=== PATIENT | female | born 1990 | race Caucasian/White ===

== ENCOUNTER 2021-11-23 10:31 | Outpatient (REF) | payer BC, SELFPAY ==
--- NOTE | ~2021-11-23 | XR_ITS ---
EXAMINATION: XR ANKLE, LEFT CLINICAL INFORMATION: Ankle injury COMPARISON: None TECHNIQUE: AP, lateral, and mortise views of the left ankle. FINDINGS: There is no evidence of acute fracture or dislocation of the left ankle. Left ankle mortise appears intact without widening of the medial joint space. No significant soft tissue swelling is appreciated. XR/XR ankle LT min 3V IMPRESSION: No acute fracture or dislocation of the left ankle.
== END 2021-11-23 10:32 | disposition home or self-care (01) ==
LOC: HO.HMGCX 10:31
PROVIDERS: PCP Internal Medicine; Visit Provider Physician Assistant
DX: S99.912A Unspecified injury of left ankle, initial encounter (principal)
CPT/HCPCS: 73610

== ENCOUNTER 2024-07-11 08:15 | Outpatient (REF) | payer BC, SELFPAY ==
[2024-07-11 10:41] LABS: Influenza A PCR NEGATIVE (Negative); Influenza B PCR NEGATIVE (Negative); Resp Syncy Virus RNA Qual PCR NEGATIVE (Negative); SARS COV2 PCR INHOUSE NEGATIVE (Negative)
== END 2024-07-11 08:16 | disposition home or self-care (01) ==
LOC: HO.LAB 08:15
PROVIDERS: PCP Nurse Practitioner Family; Visit Provider Nurse Practitioner Family
DX: J06.9 Acute upper respiratory infection, unspecified (principal)
CPT/HCPCS: 0241U; 87880

== ENCOUNTER 2024-07-11 08:15 | Outpatient (AMB) | payer BC, SELFPAY ==
--- NOTE | 2024-07-11 08:24 | AM.OFFWIN_ITS ---
Intake Vital Signs 07/11/24 08:25 Height 5 ft 7 in Weight 239 lb BMI 37.4 BP 110/80 Blood Pressure Location Rt brachial Position Sitting Pulse 80 Pulse Source Pulse Oximeter Temp 98.2 F Temp Source Oral Pulse Oximetry (%) 98 Oxygen Delivery Method Room Air Intake Visit Reasons: EP-strep test Intake Note: Patient here for cough, runny nose, fatigue and sore throat Patient Tobacco Use Status: Never used Tobacco Allergies No Known Allergies Allergy (Verified 07/11/24 08:26) Do you need a note to return to daycare/school/sports/work: No HPI HPI Comments History of Present Illness Details 33 y/o female patient who presents to [facility] with c/o Sore-throat for 2 days now. She has 2 young children at home with Strep and RSV. Denies fevers, chills, nausea or vomiting. PFSH Social History Patient Tobacco Use Status: Never used Tobacco Review of Systems Const All systems reviewed & are unremarkable except as noted in HPI and below Physical Exam Vital Signs: Last Vital Signs Temp 98.2 F 07/11/24 08:25 Pulse 80 07/11/24 08:25 BP 110/80 07/11/24 08:25 Pulse Ox 98 07/11/24 08:25 Oxygen Delivery Method Room Air 07/11/24 08:25 BMI result Body Mass Index 37.4 Const General: cooperative and no acute distress Nutritional Appearance: overweight Orientation/consciousness: patient oriented x3 HEENT Head: Yes normocephalic Ears: external ears normal and TM abnormal erythematous and with fluid behind the TM General nose exam: Abnormal mucous membranes and turbinates present boggy and erythematous Face and sinus: Yes sinuses nontender Mouth: moist mucous membranes Throat: Yes postnasal drainage Resp Effort & Inspection: normal respiratory effort, able to speak in complete sent[place] sherie and no cough Auscultation: clear to auscultation bilaterally, no crackles, no rales, no rhonchi and no wheezes Cardio Heart sounds: S1 normal heart sound present and S2 normal heart sound present Neuro General: patient oriented x3, gait normal and moves all extremities Psych Speech and movement: Normal speech and movement present Results AMB Rapid Strep AMB Rapid Strep Negative Last Edit by QUINN Perez on 07/11/24 09:12 Assessment & Plan Assessment & Plan (1) Acute respiratory disease: Code(s): J06.9 - Acute upper respiratory infection, unspecified Plan: Rapid Strep negative Ordered SARs OTC cold/cough remedies Rest and hydrate well. Orders: Orders AMB Rapid Strep Screen Today Z13.9 - Encounter for screening, unspecified SARS-CoV2/FLU/RSV Today J06.9 - Acute upper respiratory infection, unspecified Coding Level of Care Code Est Pt Level 3 (05805) Diagnoses Acute respiratory disease J06.9 Time Spent (min) 15
[2024-07-11 08:25] VITALS: BP 110/80; PULSE 80; TEMP 36.8; O2SAT 98; BMI 37.4
== END 2024-07-11 09:25 | disposition home or self-care (01) ==
PROVIDERS: PCP Nurse Practitioner Family; Visit Provider Nurse Practitioner Family
DX: J06.9 Acute upper respiratory infection, unspecified (principal); Z13.9 Encounter for screening, unspecified

== ENCOUNTER 2025-04-29 10:05 | Outpatient (AMB) | payer BC, SELFPAY ==
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
[2025-04-29 10:12] VITALS: BP 120/82; PULSE 63; RESP 16; TEMP 36.8; O2SAT 98; BMI 34.0
== END 2025-04-29 12:52 | disposition home or self-care (01) ==
LOC: HO.HMCC 10:06
PROVIDERS: Visit Provider Internal Medicine
DX: Z00.01 Encounter for general adult medical examination with abnormal findings (principal); E66.811 Obesity, class 1; Z68.34 Body mass index [BMI] 34.0-34.9, adult; F41.1 Generalized anxiety disorder; L70.0 Acne vulgaris

== ENCOUNTER → 2025-04-29 10:05 | Outpatient (BNVA) | payer BC, SELFPAY | PROVIDERS: Visit Provider Internal Medicine | DX: Z00.01 Encounter for general adult medical examination with abnormal findings (principal); E66.811 Obesity, class 1; F41.1 Generalized anxiety disorder; L70.0 Acne vulgaris; Z68.34 Body mass index [BMI] 34.0-34.9, adult | CPT/HCPCS: 96127 ==

== ENCOUNTER 2025-08-20 06:44 | Outpatient (REF) | payer BC, SELFPAY ==
[2025-08-20 10:25] LABS: MANUAL DIFF FLAG NO
[2025-08-20 10:40] LABS: Hematocrit 42.4 % (37.0-47.0); Hemoglobin 13.7 g/dl (12.0-16.0); Imm Gran Abs Auto 0.02 X10*3/uL (0.00-0.03); Imm Gran Pct Auto 0.3 % (0.0-0.4); Lymphocytes Absolute Auto 2.5 X10*3/uL (1.2-4.9); Mean Corpuscular HGB Conc 32.3 g/dl (31.0-35.0); Mean Corpuscular Hemoglobin 29.0 pg (27.0-33.0); Mean Corpuscular Volume 89.8 fL (80.0-98.0); NRBC Abs Auto 0.000 X10*3/uL (0.0-0.012); NRBC Pct Auto 0.0 /100WBC (0.0-0.2); Platelet Count 240 X10*3/uL (160-400); Red Blood Count 4.72 X10*6/uL (4.20-5.50); White Blood Count 7.6 X10*3/uL (4.8-10.8)
[2025-08-20 11:23] LABS: Alanine Aminotransferase 26 U/L (0-31); Anion Gap 10 (12-20); Aspartate Amino Transferase 26 U/L (5-31); Blood Urea Nitrogen 12 mg/dL (9-16); Calcium 9.5 mg/dL (8.4-10.2); Carbon Dioxide 26 mmol/L (22-29); Chloride 109 mmol/L (96-108); Cholesterol 186 mg/dL (<200); Estimated Glomerular Filt Rate > 60; HDL Cholesterol 54 mg/dL (>40); Potassium 4.4 mmol/L (3.3-5.1); Sodium 141 mmol/L (135-145); Triglycerides 142 mg/dL (<150)
== END 2025-08-20 06:45 | disposition home or self-care (01) ==
LOC: HO.HMGCLDS 06:44
PROVIDERS: PCP Internal Medicine; Visit Provider Internal Medicine
DX: E66.811 Obesity, class 1 (principal); Z13.220 Encounter for screening for lipoid disorders; Z13.1 Encounter for screening for diabetes mellitus; Z13.21 Encounter for screening for nutritional disorder; Z13.29 Encounter for screening for other suspected endocrine disorder; Z97.5 Presence of (intrauterine) contraceptive device
CPT/HCPCS: 36415; 80048; 80061; 82306; 84443; 84450; 84460; 85025

== ENCOUNTER 2025-09-02 07:54 | Outpatient (AMB) | payer BC, SELFPAY ==
--- NOTE | 2025-09-02 08:21 | MHC.PC.OV ---
Vital Signs 09/02/25 08:22 Height 5 ft 7 in Weight 237 lb BMI 37.1 BP 112/72 Blood Pressure Location Rt brachial Position Sitting Respiration 16 Pulse 80 Pulse Source Pulse Oximeter Temp 98.6 F Temp Source Oral Pulse Oximetry (%) 98 Oxygen Delivery Method Room Air Intake Visit Reasons: 2 month follow up Intake Note: Pt is here today for her 2 months f/u Allergies No Known Allergies Allergy (Verified 09/02/25 08:28) Medication List - Last Reconciled 09/02/25 by Ivis Flanagan MD etonogestrel (Nexplanon) subdermal sertraline 75 mg (1.5 x 50 mg) PO DAILY Tobacco use date assessed: 09/02/25 Dental Screening Dental Screen Date: 09/02/25 Did you have a dental visit in the last 12 months?: Yes Did you have a dental problem in the last 6 months where you did not have access to dental care?: No Was dental information given to patient?: Patient has dentist HPI 2 month follow up HPI Details 34-year-old lady here today for follow-up on her generalized anxiety disorder. She is currently on sertraline 75 mg taken once a day which she states has been helping control her anxiety attacks. She also sees a therapist via zoom from [facility]. Recent fasting labs showed normal lipids, electrolytes renal function and liver enzymes but fasting glucose is mildly elevated at 107 mg/dL. She has history of gestational diabetes and family history for diabetes mellitus as well. [facility] Medical History Obesity (BMI 30.0-34.9) Generalized anxiety disorder Nexplanon in place Acne vulgaris Surgical History H/O: Family History Father Type 2 diabetes mellitus Essential hypertension Maternal Grandmother Alzheimer's disease, Onset Age: 50 Mother Depression with anxiety Sister Depression with anxiety Brother Non Hodgkin's lymphoma Social History Housing: House Patient Tobacco Use Status: Never used Tobacco e-Cigarette/Vaping Use: Never Used service: No Current occupational status: employed Female Reproductive History Menstrual Other: Sees [facility] at [place], sees Dr. Sandra Mahan Questionnaire PHQ-9 Over the last 2 weeks, how often have you been bothered by any of the following problems? 1. Little interest or pleasure in doing things: not at all 2. Feeling down, depressed, or hopeless: not at all 3. Trouble falling or staying asleep, or sleeping too much: several days 4. Feeling tired or having little energy: several days 5. Poor appetite or overeating: several days 6. Feeling bad about yourself - or that you are a failure or have let yourself or your family down: not at all 7. Trouble concentrating on things, such as reading the newspaper or watching television: several days 8. Moving or speaking so slowly that other people could have noticed. Or the opposite - being so fidgety or restless that you have been moving around a lot more than usual: not at all 9. Thoughts that you would be better off or of hurting yourself in some way: not at all Total score: 4 Depression Screening Interpretation: Negative Depression Screening Done: Yes Source: Developed by Drs. Bruce Garcia, Barbara Valdivia, Ricci Pantoja and colleagues, with an educational carlie from [employer]. Thrive Questionnaire Date Thrive assessed: 04/29/25 I am a: Patient What is your living situation today?: I have a steady place to live Within the past 12 months, did the food you bought not last and you didn't have the money to get more?: Never true Within the past 12 months, did you worry whether your food would run out before you got money to buy more?: Never true Do you have trouble paying for medicines?: No Do you have trouble getting transportation to medical appointments?: No Do you have trouble paying your heating and electricity bill?: No Do you have trouble taking care of your child, family member or friend?: No Do you have trouble with day-to-day activities such as bathing, preparing meals, shopping, managing finances, etc.?: No Are you currently unemployed and looking for a job?: No Are you interested in more education?: No Please select the resources that you would like help with: None Currently or been in a relationship where the following occur: No concerns reported THRIVE Score: 0 AUDIT C Alcohol Use Questionnaire (AUDIT-C) 1. How often do you have a drink containing alcohol?: Never 3. How often do you have six or more drinks on one occasion?: Never Total Score: 0 Score Reviewed/Action Taken: Yes KHRIS-7 AMB Questionnaire KHRIS-7 Date KHRIS - 7 assessed: 09/02/25 Feeling nervous, anxious, or on edge: 1 = Several days Not being able to stop or control worryin = Not at all Worrying too much about different things: 0 = Not at all Trouble relaxin = Not at all Being so restless that it is hard to sit still: 0 = Not at all Becoming easily annoyed or irritable: 0 = Not at all Feeling afraid as if something awful might happen: 0 = Not at all Total KHRIS-7 score (0-4 normal; 5-9 mild; 10-14 moderate; 15-21 severe): 1 Source: Developed by Drs. Bruce Garcia, Barbara Valdivia, Ricci Pantoja and colleagues, with an educational carlie from [employer]. KHRIS-7 Assessment Billing KHRIS-7 Assessment Tool: KHRIS-7 Assessment 65846 Review of Systems Const Denies fatigue, Denies fever(s), Denies headache(s) and Denies weakness Eyes Denies change in vision ENT Denies dizziness, Denies headache(s) and Denies nasal congestion Card Denies chest pain, Denies lightheadedness, Denies palpitations and Denies dyspnea Resp Denies cough, Denies dyspnea and Denies wheezing GI Denies abdominal pain, Denies change in bowel habits and Denies heartburn Details: Currently sees [facility] at [place] sees Dr. Erika Mahan Denies hematuria, Denies urinary frequency, Denies dysuria and Denies urinary urgency Musc Reports no additional complaints Skin/Breast Denies lesions and Denies rash Neuro Denies dizziness, Denies headache(s) and Denies weakness Psych Reports as per HPI Endo Denies fatigue, Denies polydipsia, Denies polyuria and Denies palpitations Tam/Lymph Denies easy bruising Aller/Immun Denies seasonal rhinorrhea and Denies wheezing Physical exam (Primary Care) Vital Signs: Last Vital Signs Temp 98.6 F 09/02/25 08:22 Pulse 80 09/02/25 08:22 Resp 16 09/02/25 08:22 BP 112/72 09/02/25 08:22 Pulse Ox 98 09/02/25 08:22 Oxygen Delivery Method Room Air 09/02/25 08:22 BMI result Body Mass Index 37.1 Tobacco/Smoking Status: Tobacco use Status Tobacco use date assessed 09/02/25 09/02/25 08:25 Patient Tobacco Use Status Never used Tobacco 09/02/25 08:25 e-Cigarette/Vaping Use Never Used 09/02/25 08:25 Depression Screening Interpretation: Negative Thrive Assessment: Date of Thrive Assessment Date Thrive assessed 04/29/25 09/02/25 08:25 Currently or been in a relationship where the following occur: No concerns reported Const General: no acute distress and alert Orientation/consciousness: patient oriented x3 HENMT Head: Yes normocephalic Ears: external ears normal General nose exam: Normal external nose present Face and sinus: Yes face symmetric Mouth: moist mucous membranes Eyes General: appearance normal, both eyes and all related structures Neck Neck: Yes full ROM, Yes no lymphadenopathy and Yes supple Thyroid: Thyroid normal Resp Effort & Inspection: normal respiratory effort and able to speak in complete sentences Auscultation: clear to auscultation bilaterally Cardio Rate: regular rate Rhythm: regular rhythm Heart sounds: S1 normal heart sound present and S2 normal heart sound present GI Palpation (GI): Soft to palpation, nontender, no guarding and no masses Auscultation: normal bowel sounds Skin General skin exam: no rashes or lesions noted Neuro General: patient oriented x3, gait normal, moves all extremities and no focal motor deficits Cognition (Neuro): normal cognition Gait exam (Neuro): Normal gait present Extrem General: Yes normal to inspection, Yes full ROM, Yes no joint enlargement, Yes no pedal edema and Yes normal gait Psych Appearance: grossly normal and well kempt Mental Status: mental status grossly normal Speech and movement: Normal speech and movement present Affect: normal affect Attitude: cooperative Thought process: Normal thought process present Thought content: Normal thought content present Coding Level of Care Code Est Pt Level 4 (16446) Diagnoses Generalized anxiety disorder F41.1 Impaired fasting glucose R73.01 Additional Codes KHRIS-7 Assessment Billing - KHRIS-7 Assessment Tool: KHRIS-7 Assessment 75626 ([id number]) Assessment & Plan Assessment & Plan (1) Generalized anxiety disorder: Code(s): F41.1 - Generalized anxiety disorder Category: Medical Plan: Continue with sertraline 75 mg once a day, prescription was sent. Patient also seeing a counselor at [facility] regularly. Will see her back for follow-up next year on her next appointment in April 2026 (2) Impaired fasting glucose: Code(s): R73.01 - Impaired fasting glucose Category: Medical Plan: Your previous fasting blood sugars were elevated above 100 mg/dL. Impaired glucose metabolism increases the risk for developing diabetes mellitus type 2, as well as heart attack and stroke later on. Lifestyle changes that promotes weight loss, healthy eating habits, and regular exercise are important, and can prevent the progression to diabetes Orders: Orders Alanine Aminotransferase 04/07/26 E66.811 - Obesity, class 1, F41.1 - Generalized anxiety disorder, Z97.5 - Presence of (intrauterine) contraceptive device Aspartate Amino Transferase 04/07/26 E66.811 - Obesity, class 1, F41.1 - Generalized anxiety disorder, Z97.5 - Presence of (intrauterine) contraceptive device Lipid Panel 04/07/26 E66.811 - Obesity, class 1, F41.1 - Generalized anxiety disorder, Z97.5 - Presence of (intrauterine) contraceptive device Vitamin D 25-OH Total 04/07/26 E66.811 - Obesity, class 1, F41.1 - Generalized anxiety disorder, Z97.5 - Presence of (intrauterine) contraceptive device Hemoglobin A1c 04/07/26 E66.811 - Obesity, class 1, R73.01 - Impaired fasting glucose, Z86.32 - Personal history of gestational diabetes, Z97.5 - Presence of (intrauterine) contraceptive device Medications: New cholecalciferol (vitamin D3) 50 mcg PO DAILY 30 caps 5RF
[2025-09-02 08:22] VITALS: BP 112/72; PULSE 80; RESP 16; TEMP 37; O2SAT 98; BMI 37.1
== END 2025-09-02 09:04 | disposition home or self-care (01) ==
LOC: HO.HMCC 07:56
PROVIDERS: Visit Provider Internal Medicine
DX: F41.1 Generalized anxiety disorder (principal); R73.01 Impaired fasting glucose

== ENCOUNTER → 2025-09-02 07:54 | Outpatient (BNVA) | payer BC, SELFPAY | PROVIDERS: Visit Provider Internal Medicine | DX: F41.1 Generalized anxiety disorder (principal); R73.01 Impaired fasting glucose; E66.811 Obesity, class 1; Z97.5 Presence of (intrauterine) contraceptive device; Z79.899 Other long term (current) drug therapy; Z68.37 Body mass index [BMI] 37.0-37.9, adult | CPT/HCPCS: 96127 ==